=== PATIENT | male | born 1995 | race Caucasian/White ===

== ENCOUNTER 2019-04-18 03:12 | Emergency (ER) | payer SELFPAY ==
[~2019-04-18] VITALS: Ht 180.3 cm; Wt 95.0 kg
[~2019-04-18 03:12] MED LIST: ACET500C5 PO; IBUP-1561 PO; NAPR-985 PO
[2019-04-18 03:30] VITALS: Ht 180.3 cm; Wt 95.0 kg
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
[2019-04-18] MEDS ORDERED: IBUPROFEN 800 MG TAB PO ONE (04:00)
[2019-04-18 05:28] VITALS: BP 148/92; PULSE 75; RESP 16
== END 2019-04-18 05:31 | disposition home or self-care (01) ==
LOC: E/R 03:12
DX: S00.83XA Contusion of other part of head, initial encounter (principal); S93.402A Sprain of unspecified ligament of left ankle, initial encounter; Y04.0XXA Assault by unarmed brawl or fight, initial encounter
CPT/HCPCS: 70450; 73610; Z7610